=== PATIENT | female | born 1990 | race Caucasian/White ===

== ENCOUNTER 2022-01-03 10:02 | Inpatient (IN) | payer BC ==
[2022-01-11] MEDS ORDERED: Fentanyl 100 MCG/2 ML VIAL SLOW IVP PRN (06:54)
[2022-01-11] MEDS ORDERED: Lidocaine 1% (PF) 30 ML VIAL SC PRN (06:54)
[2022-01-11] MEDS ORDERED: Promethazine HCl 25 MG/ML VIAL IM PRN ×2 (06:54→09:31)
[2022-01-11] MEDS ORDERED: Diphenoxylate HCl/Atropine Tablet PO PRN (06:54)
[2022-01-11] MEDS ORDERED: Carboprost 250 MCG/ML AMP IM PRN (06:54)
[2022-01-11] MEDS ORDERED: Ibuprofen 800 MG TAB PO PRN (06:54)
[2022-01-11] MEDS ORDERED: hydrALAZINE 20 MG/ML VIAL SLOW IVP PRN ×2 (06:54→15:17)
[2022-01-11] MEDS ORDERED: HYDROcodone/Acetaminophen 5/325 mg Tablet PO PRN (06:54)
[2022-01-11] MEDS ORDERED: Acetaminophen 500 MG TAB PO PRN (06:54)
[2022-01-11] MEDS ORDERED: Ondansetron PF 4 MG/2 ML Vial IVP PRN ×2 (06:54→09:31)
[2022-01-11] MEDS ORDERED: Misoprostol 200 MCG TAB PR PRN (06:54)
[2022-01-11] MEDS ORDERED: NS w/ Oxytocin 30 units 500 ML IV SCH ×2 (07:00)
[2022-01-11 07:22] LABS: Hemoglobin 11.1 g/dL (12.0-15.5); Mean Corpuscular HGB CONC 33.2 g/dL (32.0-36.0); Mean Corpuscular Volume 87.2 fl (81.6-98.3); Mean Platelet Volume 10.9 fl (7.4-10.4); Platelet Count 228 10x3/uL (150-450); RBC Distribution Width 13.2 % (11.5-14.5); Red Blood Cell (RBC) Count 3.83 10x6/uL (3.90-5.03); White Blood Cell (WBC) Count 8.5 10x3/uL (3.5-10.5)
[2022-01-11] MEDS ORDERED: Bupivacaine 0.25% HCL 30 ML VIAL ONE (08:00)
[2022-01-11] MEDS ORDERED: Lidocaine 2% MPF 10 ML AMP (For Epidural Use) ONE (08:00)
[2022-01-11 08:14] LABS: Hep B Surf Ag Non-Reactive S/CO (NonReactive)
[2022-01-11 08:15] LABS: Syphilis Antibody Nonreactive (Nonreactive); Syphilis Antibody Index 0.04 S/CO (<1.00 Non-Reactive)
[2022-01-11 08:19] LABS: HBSAg Index 0.15 S/CO (0-0.99)
[2022-01-11] MEDS ORDERED: Fentanyl 2 mcg/Bup 0.1% Cadd 0 ML ONE (09:08)
[2022-01-11] MEDS ORDERED: ePHEDrine Sulfate 50 MG/10 ML VIAL SLOW IVP PRN (09:31)
[2022-01-11] MEDS ORDERED: Hydrocerin (Eucerin) Cream 120 gm Jar TOP PRN (09:31)
[2022-01-11] MEDS ORDERED: Acetaminophen 325 MG TAB PO PRN (09:31)
[2022-01-11] MEDS ORDERED: diphenhydrAMINE 50 MG/ML VIAL IVP PRN (09:31)
[2022-01-11] MEDS ORDERED: Lactated Ringer's 500 ML IV PRN (09:31)
[2022-01-11] MEDS ORDERED: Naloxone HCl 0.4 mg/ml Vial IVP PRN ×2 (09:31)
[2022-01-11] MEDS ORDERED: Communication Order-Pharmacy FS SCH (09:45)
[2022-01-11] MEDS ORDERED: Fentanyl 2 mcg/Bupivacaine 0.1% Cassette 100 ML EPIDURAL SCH (09:45)
[2022-01-11 10:52] VITALS: BMI 31.4
[2022-01-11] MEDS ORDERED: Fentanyl 2 mcg/Bup 0.1% Cadd 100 ML ONE (14:35)
[2022-01-11] MEDS ORDERED: Milk Of Magnesia 30 ML UDCUP PO PRN (15:17)
[2022-01-11] MEDS ORDERED: Bisacodyl 10 MG SUPP PR PRN (15:17)
[2022-01-11] MEDS ORDERED: Benzocaine-Menthol 82.5 ML CAN TOP PRN (15:17)
[2022-01-11] MEDS ORDERED: Lanolin Ointment 7 GM TUBE TOP PRN (15:17)
[2022-01-11] MEDS ORDERED: traMADol HCl 50 MG TAB PO PRN (15:17)
[2022-01-11] MEDS: Ferrous Sulfate 325 MG TAB PO SCH (17:06)
[2022-01-11] MEDS: Docusate 100 MG CAP PO SCH (22:00)
[2022-01-11] MEDS: Ibuprofen 800 MG TAB PO SCH (22:02)
[2022-01-12] MEDS: Ibuprofen 800 MG TAB PO SCH ×2 (05:25→14:02)
[2022-01-12] MEDS: Ferrous Sulfate 325 MG TAB PO SCH (07:38)
[2022-01-12] MEDS: Docusate 100 MG CAP PO SCH (08:20)
[2022-01-12] MEDS ORDERED: Witch Hazel-Glycerin 1 EACH JAR TOP PRN (09:36)
[2022-01-12 11:45] VITALS: BP 125/87; TEMP 98.3
[2022-01-12] MEDS ORDERED: Boostrix 0.5 ML (Tdap) VIAL IM ONE (15:17)
== END 2022-01-12 17:30 | disposition home or self-care (01) | DRG 807 ==
LOC: CSHLD 01-11 05:56 → CSHPP 01-11 16:40
PROVIDERS: ADMIT Obstetrics & Gynecology; ATTEND Obstetrics & Gynecology
PROC: 10E0XZZ Delivery of Products of Conception, External Approach (ICD-10-PCS; principal; 2022-01-11)
PROC: 0UQMXZZ Repair Vulva, External Approach (ICD-10-PCS; 2022-01-11)
PROC: 10907ZC Drainage of Amniotic Fluid, Therapeutic from Products of Conception, Via Natural or Artificial Opening (ICD-10-PCS; 2022-01-11)
PROC: 3E033VJ Introduction of Other Hormone into Peripheral Vein, Percutaneous Approach (ICD-10-PCS; 2022-01-11)
DX: O71.82 Other specified trauma to perineum and vulva (principal); Z37.0 Single live birth; Z3A.39 39 weeks gestation of pregnancy; Z88.2 Allergy status to sulfonamides; Z20.822 Contact with and (suspected) exposure to COVID-19
CPT/HCPCS: 36415; 51702; 85027; 86780; 86850; 86900; 86901; 87340; J2590; S0020; U0003; U0005

== ENCOUNTER 2022-01-08 08:22 | Outpatient (CLI) | payer BC ==
[2022-01-08 18:13] LABS: SARS-CoV-2 PCR by NAA Not Detected (NotDetected)
== END 2022-01-08 08:23 | disposition home or self-care (01) ==
LOC: CSHLAB 08:22
PROVIDERS: ATTEND Obstetrics & Gynecology
DX: Z20.822 Contact with and (suspected) exposure to COVID-19 (principal)
CPT/HCPCS: U0003; U0005